=== PATIENT | female | born 1995 | race Two or more races ===

== ENCOUNTER 2017-07-31 19:23 | Emergency (ER) | payer MEDICAID ==
[2017-07-31 19:44] VITALS: BP 134/52
[2017-07-31] MEDS ORDERED: Ketorolac 60 MG/2 ML SDV IM ONE (19:58)
[2017-07-31] MEDS ORDERED: Take Home: Cyclobenzaprine 10 MG Tab, 4 Tab Pack PO ONE (20:17)
--- NOTE | 2017-08-04 05:38 | ER ---
Date of Service: 07/31/2017 SUBJECTIVE: Avril presents to the emergency room with complaints of chronic neck pain. The patient states that she has been experiencing this for several weeks. She states the discomfort radiates down her left shoulder occasionally and into her arm. The patient states that she has had an MRI of her cervical spine and is concerned because she has not gotten results of this yet. She states that she has not experienced any trauma. She denies any fever or chills. PAST MEDICAL HISTORY: Denies. MEDICATIONS: None. ALLERGIES: NKDA. REVIEW OF SYSTEMS: No fever, chills, shortness of breath, chest pain, abdominal pain, or headache. Please see history of present illness. PHYSICAL EXAMINATION: General: This is a 22-year-old female patient who is in no acute distress. Vital Signs: Blood pressure is 134/52, heart rate is 72, temp is 36.8, respiratory rate is 20, and O2 saturations 100%. Skin: Warm, pink, and dry. HEENT: Head is normocephalic, atraumatic. Eyes: PERRLA. Extraocular movements are intact. Back: No significant muscle spasm noted to the accessory muscles of the cervical spine. No step-offs or deformity noted. Lungs: Clear to auscultation. Heart: Regular rate and rhythm. Neurologic: She is alert, oriented, and answers all questions appropriately. She has 5/5 strength in both her upper and lower extremities. Remainder of her physical examination is within normal limits. EMERGENCY ROOM COURSE: The patient was given injection of Toradol 60 mg IM and Norflex 60 mg IM. She was observed for a period of time and reported minimal improvement in her discomfort. She remained stable in my care in the emergency room. ASSESSMENT: Cervical spinal pain with radicular symptoms. PLAN: The patient will be discharged. I was able to locate her MRI report, which did not reveal any acute pathology. We will have her follow up with her primary care provider in the next 5 to 7 days to ensure resolution of her symptoms. All questions were answered. MWK: 08/04/2017 04:57:44 MODL: 08/04/2017 05:29:06 /[id number]
== END 2017-07-31 20:40 | disposition home or self-care (01) ==
LOC: VM.ED 19:23
DX: M54.2 Cervicalgia (principal)
CPT/HCPCS: 96372; 99283; A9270; J1885; J2360

== ENCOUNTER 2017-09-05 17:30 | Emergency (ER) | payer MEDICAID ==
[2017-09-05 17:49] VITALS: BP 136/78
[2017-09-05] MEDS ORDERED: Ketorolac 60 MG/2 ML SDV IM ONE (17:53)
--- NOTE | 2017-09-05 19:25 | EDM.PDOC ---
ED HPI GENERAL MEDICAL PROBLEM - General Chief Complaint: Neck Problem Stated Complaint: LEFT ARM AND NECK PAIN Time Seen by Provider: 09/05/17 17:45 Source of Information: Reports: Patient History Limitations: Reports: No Limitations - History of Present Illness INITIAL COMMENTS - FREE TEXT/NARRATIVE: Pt. has been experiencing intermittent neck pain with radiation into her L upper extremity for several months. Pt. has also been seen in the clinic and has had an MRI which was negative for any acute disc herniation or other cause for her discomfort. She has not done PT since January. She also states that she is not taking NSAIDs since they "don't help". Onset Date: 09/03/17 Duration: Getting Worse Location: Reports: Neck, Upper Extremity, Left Quality: Reports: Ache Severity: Moderate Left Neck Pain Score (Numeric/FACES): 9 - Related Data Allergies Allergy/AdvReac Type Severity Reaction Status Date / Time No Known Allergies Allergy Verified 09/05/17 18:29 Home Meds: Home Meds . [No Known Home Meds] 09/05/17 [History] Past Medical History - Past Health History Medical/Surgical History: Denies Medical/Surgical History Social & Family History - Family History Family Medical History: Noncontributory - Tobacco Use Smoking Status *Q: Never Smoker - Caffeine Use Caffeine Use: Reports: None - Recreational Drug Use Recreational Drug Use: No ED ROS GENERAL - Review of Systems Review Of Systems: See Below Musculoskeletal: Reports: Neck Pain, Arm Pain (left lateral neck pain with radiation into L upper extremity) ED EXAM, UPPER BACK/NECK PAIN - Physical Exam Exam: See Below Neck Exam: Full Range of Motion, Normal Alignment, Normal Inspection, Painful Range of Motion, Tenderness Extremities: Normal Inspection, Arm Pain Course - Vital Signs Last Recorded V/S: Last Vital Signs Temp 97.9 C H 09/05/17 17:39 Pulse 64 09/05/17 17:39 Resp 16 09/05/17 17:39 BP 136/78 09/05/17 17:39 Pulse Ox - Orders/Labs/Meds Meds: Medications Discontinued Medications Generic Name Dose Route Start Last Admin Trade Name Freq PRN Reason Stop Dose Admin Ketorolac Tromethamine 60 mg 09/05/17 17:53 09/05/17 18:02 Toradol IM 09/05/17 17:54 60 mg ONETIME ONE Administration Orphenadrine Citrate 60 mg 09/05/17 17:53 09/05/17 18:03 Norflex IM 09/05/17 17:54 60 mg ONETIME ONE Administration - Re-Assessments/Exams Free Text/Narrative Re-Assessment/Exam: 09/05/17 19:34Pt. did report improvement in discomfort after injections of toradol and norflex. Departure - Departure Time of Disposition: 17:39 Disposition: Home, Self-Care 01 Clinical Impression: Pain - Discharge Information Instructions: Cervical Radiculopathy, Musculoskeletal Pain Referrals: PCP,None [Primary Care Provider] - Forms: ED Department Discharge Additional Instructions: Physical therapy will contact you regarding an appointment. Flexeril 10mg three times daily. Naproxen 500mg 1 tablet twice daily as needed. Follow-up in clinic in 5-7 days for recheck. - Problem List & Annotations (1) Cervical spine pain SNOMED Code(s): 681776276 Code(s): M54.2 - CERVICALGIA Status: Acute (2) Radiculopathy affecting upper extremity SNOMED Code(s): 06429729 Code(s): M54.10 - RADICULOPATHY, SITE UNSPECIFIED Status: Acute - Assessment/Plan Assessment:: Chronic neck pain with L upper extremity radiculopathy Plan: Follow-up with primary care this week. I will get you a referral to physical therapy. Flexeril 10mg three times daily Naproxen 500mg twice daily
== END 2017-09-05 18:20 | disposition home or self-care (01) ==
LOC: VM.ED 17:30
DX: M54.12 Radiculopathy, cervical region (principal)
CPT/HCPCS: 99283; J1885; J2360